=== PATIENT | male | born 1995 | race Hispanic/Latino ===

== ENCOUNTER 2020-11-14 21:37 | Emergency (ER) | payer OTHER ==
[~2020-11-14] VITALS: Ht 167.6 cm; Wt 90.2 kg
[2020-11-14] MEDS ORDERED: LIDOCAINE 1% MDV 20ML VIAL SC ONE (22:50)
[2020-11-14] MEDS ORDERED: AUGM875T28 PO (23:17)
[2020-11-14] MEDS ORDERED: NEOSPORIN OINT 0.9 GM PKT TOP ONE (23:20)
[2020-11-14] MEDS ORDERED: AUGMENTIN 875 MG TAB PO ONE (23:20)
[2020-11-14 23:30] VITALS: BP 139/87
== END 2020-11-14 23:49 | disposition home or self-care (01) ==
LOC: M ED 21:37
DX: S61.002A Unspecified open wound of left thumb without damage to nail, initial encounter (principal); Y04.1XXA Assault by human bite, initial encounter; Y92.410 Unspecified street and highway as the place of occurrence of the external cause; Y93.9 Activity, unspecified; Y99.9 Unspecified external cause status